=== PATIENT | male | born 1985 | race Caucasian/White ===

== ENCOUNTER 2019-07-03 18:51 | Inpatient (IN) ==
[2019-07-03] MEDS ORDERED: ONDANSETRON 4 MG/2 ML VIAL IV ONE (20:06)
[2019-07-03] MEDS ORDERED: HYDROmorphone 2 MG/1 ML VIAL IV STA (20:06)
[2019-07-03] MEDS ORDERED: SODIUM CHLORIDE 0.9% 1,000 ML IV STA ×2 (20:17→22:21)
[2019-07-03 21:04] LABS: Basophils % 0.3 % (0.0-0.8); Eosinophils # 0.1 10*3/uL (0.0-0.87); Eosinophils % 0.4 % (0.00-10.9); Hematocrit 43.6 VOL% (42.0-52.0); Hemoglobin 14.6 GM/DL (14.0-18.0); Immature Granulocytes % 0.4 %; Immature Granulocytes Absolute 0.05 #; Lymphocytes # 1.4 10*3/uL (1.4-4.0); Lymphocytes % 12.5 % (21.2-54.2); Mean Corpuscular HGB Conc 33.5 GM/DL (32-36); Mean Corpuscular Volume 84.8 FL (87-102); Monocytes % 8.4 % (1.7-12.7); Platelet Count 173 T/CUMM (130-400); Red Blood Count 5.14 MC/CUMM (3.8-5.5); Red Cell Distribution Width 13.2 % (9.3-17.3); White Blood Count 11.5 T/CUMM (4-12)
[2019-07-03 21:20] LABS: Bilirubin,Total 1.4 MG/DL (0.2-1.0); Calcium 8.4 MG/DL (8.5-10.1); Osmolality,Calculated 277.8 MOS/KG (273-304); Total Protein 7.7 G/DL (6.4-8.3)
[2019-07-03] MEDS ORDERED: KETOROLAC 30 MG/1 ML VIAL IM STA (21:51)
[2019-07-03] MEDS ORDERED: hydrALAZINE 20 MG/1 ML VIAL IV STA (21:51)
[2019-07-03 22:00] LABS: Apearance,Urine CLEAR (Clear); Bacteria,Urine Occasional /HPF (Few); Bilirubin,Urine Negative (Negative); Blood, Urine Moderate mg/dL (Negative); Glucose,Urine (UA) Negative (Negative); Ketones,Urine Negative (Negative); Mucus,Urine Occasional /LPF (Occasional); Nitrite,Urine Positive (Negative); Protein,Urine Negative; RBC,Urine 4 /HPF (0-4); Urine Color Amber (Yellow); Urine Specific Gravity 1.017 (1.001-1.035); WBC,Urine 7 /HPF (0-6)
[2019-07-03] MEDS ORDERED: CIPROFLOXACIN 500 MG TABLET PO STA (22:12)
[2019-07-03] MEDS ORDERED: ACETAMINOPHEN 325 MG TABLET PO PRN (23:22)
[2019-07-03] MEDS ORDERED: DOCUSATE SODIUM 100 MG CAPSULE PO PRN (23:22)
[2019-07-03] MEDS ORDERED: ZALEPLON 5 MG CAPSULE PO PRN (23:22)
[2019-07-03] MEDS ORDERED: NICOTINE 21 MG/24 HR PATCH TRANSDERM PRN (23:22)
[2019-07-03] MEDS ORDERED: MORPHINE 4 MG/1 ML VIAL IV PRN (23:22)
[2019-07-03] MEDS ORDERED: guaiFENesin/DM ER 600-30 MG TABLET PO PRN (23:22)
[2019-07-03 23:42] LABS: Barbiturates Screen,Urine Negative (Negative); Benzodiazepines Screen,Urine Negative (Negative); Cannabinoid Screen,Urine Negative (Negative); Opiate Screen,Urine Positive (Negative); Phencyclidine Screen,Urine Negative (Negative)
[2019-07-04] MEDS ORDERED: SODIUM CHLORIDE 0.9% 1,000 ML IV ONE (00:01)
[2019-07-04] MEDS ORDERED: hydrALAZINE 20 MG/1 ML VIAL IV PRN (00:01)
[2019-07-04] MEDS: cefTRIAXone 1,000 MG in SYRINGE 1 EACH IV SCH ×2 (01:12→23:38)
[2019-07-04] MEDS: SODIUM CHLORIDE 0.9% 1,000 ML IV SCH ×2 (02:41→08:37)
[2019-07-04 06:04] LABS: Basophils % 0.3 % (0.0-0.8); Eosinophils # 0.1 10*3/uL (0.0-0.87); Eosinophils % 0.8 % (0.00-10.9); Hematocrit 40.3 VOL% (42.0-52.0); Hemoglobin 13.5 GM/DL (14.0-18.0); Immature Granulocytes % 0.4 %; Immature Granulocytes Absolute 0.04 #; Lymphocytes # 1.5 10*3/uL (1.4-4.0); Lymphocytes % 15.8 % (21.2-54.2); Mean Corpuscular HGB Conc 33.5 GM/DL (32-36); Mean Corpuscular Volume 85.6 FL (87-102); Mean Platelet Volume 11.7 FL (9.6-12.0); Monocytes % 7.3 % (1.7-12.7); Neutrophils % 75.4 % (38.7-73.9); Platelet Count 167 T/CUMM (130-400); Red Blood Count 4.71 MC/CUMM (3.8-5.5); Red Cell Distribution Width 13.2 % (9.3-17.3); White Blood Count 9.5 T/CUMM (4-12)
[2019-07-04 06:20] LABS: Calcium 7.9 MG/DL (8.5-10.1); Osmolality,Calculated 283.4 MOS/KG (273-304)
[2019-07-04] MEDS: PANTOPRAZOLE 40 MG TABLET PO SCH (08:36)
[2019-07-04] MEDS: amLODIPine 5 MG TABLET PO SCH (08:36)
[2019-07-04] MEDS: TAMSULOSIN 0.4 MG CAPSULE PO SCH (08:36)
[2019-07-04] MEDS: ONDANSETRON 4 MG/2 ML VIAL IV PRN ×3 (08:37→17:55)
[2019-07-04] MEDS ORDERED: ENOXAPARIN 40 MG/0.4 ML SYRINGE SUBCUT SCH (09:00)
[2019-07-04] MEDS ORDERED: HYDROmorphone 2 MG/1 ML VIAL IV PRN (09:21)
[2019-07-04] MEDS ORDERED: POTASSIUM CHLORIDE INJ 20 MEQ in SODIUM CHLORIDE 0.9% 1,000 ML IV SCH (09:22)
[2019-07-04] MEDS: SODIUM CHLOR 0.9% KCL 20 MEQ 20 MEQ/1,000 ML BAG IV SCH ×2 (09:35→17:24)
[2019-07-04] MEDS: HYDROmorphone 2 MG/1 ML VIAL IV PRN ×3 (14:45→21:55)
[2019-07-04] MEDS: PROMETHAZINE 25 MG TABLET PO PRN ×2 (14:45→21:54)
[2019-07-05] MEDS: SODIUM CHLOR 0.9% KCL 20 MEQ 20 MEQ/1,000 ML BAG IV SCH ×3 (02:05→23:05)
[2019-07-05] MEDS: PROMETHAZINE 25 MG TABLET PO PRN (06:24)
[2019-07-05] MEDS: HYDROmorphone 2 MG/1 ML VIAL IV PRN ×5 (06:25→10:45)
[2019-07-05] MEDS ORDERED: cefTRIAXone 1,000 MG in SYRINGE 1 EACH IV ONE (08:00)
[2019-07-05] MEDS: amLODIPine 5 MG TABLET PO SCH (08:09)
[2019-07-05] MEDS: TAMSULOSIN 0.4 MG CAPSULE PO SCH (08:10)
[2019-07-05] MEDS: PANTOPRAZOLE 40 MG TABLET PO SCH (08:10)
[2019-07-05] MEDS ORDERED: NEOMYCIN/POLYMYXIN IRRIG SOLN 1 ML AMP BLADDERIRR ONE (08:26)
[2019-07-05] MEDS ORDERED: LIDOCAINE 2% TOP JELLY 20 ML VIAL INTRAURETH ONE (08:26)
[2019-07-05] MEDS ORDERED: LACTATED RINGERS 1,000 ML IV SCH (09:00)
[2019-07-05] MEDS ORDERED: MIDAZOLAM 2 MG/2 ML VIAL ONE (10:12)
[2019-07-05] MEDS ORDERED: propofoL 200 MG/20 ML VIAL IV ONE (10:12)
[2019-07-05] MEDS ORDERED: fentaNYL 100 MCG/2 ML VIAL ONE ×2 (10:12→10:13)
[2019-07-05] MEDS ORDERED: SEVOFLURANE 1 UNIT/15 MINUTE INH ONE (10:12)
[2019-07-05] MEDS ORDERED: LIDOCAINE 2% 5 ML VIAL ONE (10:12)
[2019-07-05] MEDS ORDERED: ONDANSETRON 4 MG/2 ML VIAL ONE ×2 (10:13→10:30)
[2019-07-05] MEDS ORDERED: KETOROLAC 30 MG/1 ML VIAL ONE (10:13)
[2019-07-05] MEDS ORDERED: ONDANSETRON 4 MG/2 ML VIAL IV PRN (10:28)
[2019-07-05] MEDS ORDERED: HYDROmorphone 2 MG/1 ML VIAL ONE (10:30)
[2019-07-05] MEDS ORDERED: MEPERIDINE 25 MG/1 ML VIAL ONE (10:52)
[2019-07-05] MEDS ORDERED: MEPERIDINE 25 MG/1 ML VIAL IV PRN (10:57)
[2019-07-05] MEDS: POTASSIUM CHLORIDE 20 MEQ TABLET PO PRN ×4 (15:03→21:10)
[2019-07-05] MEDS: PHENAZOPYRIDINE 95 MG TABLET PO SCH (18:22)
[2019-07-06] MEDS: cefTRIAXone 1,000 MG in SYRINGE 1 EACH IV SCH (00:15)
[2019-07-06] MEDS: SODIUM CHLOR 0.9% KCL 20 MEQ 20 MEQ/1,000 ML BAG IV SCH (06:34)
[2019-07-06 07:48] VITALS: BP 161/98
[2019-07-06] MEDS: amLODIPine 5 MG TABLET PO SCH (09:33)
[2019-07-06] MEDS: TAMSULOSIN 0.4 MG CAPSULE PO SCH (09:34)
[2019-07-06] MEDS: PHENAZOPYRIDINE 95 MG TABLET PO SCH (09:34)
[2019-07-06] MEDS: PANTOPRAZOLE 40 MG TABLET PO SCH (12:35)
== END 2019-07-06 13:04 | disposition home or self-care (01) | DRG 661 ==
LOC: N.ED 18:51 → N.EDINP 23:22 → SUATTDRO 23:22 → N.5E 23:44
PROVIDERS: ADMIT Hospitalist; ATTEND Internal Medicine